=== PATIENT | male | born 1940 | race Caucasian/White ===

== ENCOUNTER 2019-04-22 08:00 | Outpatient (RCR) | payer MEDICARE, OTHER, SELFPAY ==
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
--- NOTE | 2019-04-22 09:24 | PTOPEVAL ---
PHYSICAL THERAPY DISCHARGE SUMMARY Thank you for referring Hang to [facility]. He was seen for eval and 4 treatment visits. He has met all goals set and has returned to his usual activity level without pain. He is ready for discharge from PT. I agree with and certify Hang's discharge from physical therapy. Referring Physician Date Admitting Provider: Attending Provider: Jason Cifuentes, Referring Provider: *PT Outpatient Evaluation Start: 04/08/19 10:31 Freq: Status: Active Protocol: Document 04/22/19 08:05 TAQUERIA (Rec: 04/22/19 09:24 TAQUERIA [id number]) Therapy Assessment Status Assessment Status Assessment Status Discharge Pain Assessment Timing of Pain Assessment Timing of Pain Assessment Re-assessment Self Report Self Report Pain Level 0 Pain Score Pain Score 0: Self Report Cervical and Lumbar ROM Lumbar ROM Lumbar ROM WNL Lumbar Comments equal SIJ mobility now present Cervical and Lumbar Muscle Testing Lumbar Strength Lumbar Functional Strength Comments Able to perform moderate levels of core stabilization exercises Muscle Length Testing Muscle Length Testing Left Hamstring Length -23 Query Text:(90 - 90 Position) Right Hamstring Length -18 Query Text:(90 - 90 Position) Gastrocnemius Length (R) Mild Tightness,(L) Mild Tightness Palpation Assessment Palpation Palpation no tenderness in lumbar spine, sacrum, L buttock, L greater trochanter regions. Good sacral mobility present. Fair lumbar segmental mobility present. No increase in tissue tension L buttock musculature. Equal SIJ mobility with Squish testing. PT Clinical Summary Clinical Summary Protocol: PTEVCODE Clinical Summary Hang states that he is feeling good and ready to be discharged from PT. He is not having any L hip discomfort with any of his usual activities - self, within the home, outside the home, and in the community. He has met all of the goals set except for hamstring and gastroc flexibility. He is encouraged to continue with his HEP and
== END 2019-07-05 13:51 | disposition home or self-care (01) ==
LOC: ANHHIPT 08:00
PROVIDERS: PCP Internal Medicine; Visit Provider Internal Medicine
DX: M54.5 Low back pain (principal); M25.552 Pain in left hip
CPT/HCPCS: 97014; 97110; 97140; 97161; G0283

== ENCOUNTER 2020-01-22 09:00 | Outpatient (RCR) | payer MEDICARE, OTHER, SELFPAY ==
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
--- NOTE | 2020-01-27 09:23 | PCPTNOTE ---
Monty phoned 01/24/20 to cancel the rest of his appointments - felt that he was doing well that he didn't need any further PT. Will d/c from PT.
--- NOTE | 2020-01-27 09:24 | PCPTNOTE ---
PHYSICAL THERAPY DISCHARGE NOTE Admitting Provider: Attending Provider: Jason Cifuentes, Patient:Hang Maza Date of :1940 Monty phone 01/24/2020 cancelling the rest of his PT appointments stating that he didn't need PT any longer. Monty?s initial visit was on 01/10/2020 08:30 and he had a total of 5 visits. The goals have been partially met. His initial c/o with L buttock and hip pain was resolved but then he began to have more central lower back pain c/o's. This was also addressed in PT. When last seen on 01/22/20, he did have c/o's lower back soreness. He does perform exercises at home, has a TENS unit, uses biofreeze as well as heat. He continues to stay active outdoors around his home. Thank you for referring Monty to [facility]. Please review, sign, date and return this discharge summary KARUNA. I have been updated about Monty's current status and I agree with discharge from the above service at this time. Referring Physician Date
== END 2020-02-11 09:32 | disposition home or self-care (01) ==
LOC: ANHHIPT 09:00
PROVIDERS: PCP Internal Medicine; Visit Provider Internal Medicine
DX: M54.5 Low back pain (principal); M25.552 Pain in left hip
CPT/HCPCS: 97110; 97140; 97161

== ENCOUNTER 2021-05-07 14:24 | Outpatient (CLI) | payer MEDICARE, OTHER, SELFPAY ==
--- NOTE | ~2021-05-07 | US_ITS ---
EXAMINATION: US carotid duplex BI DATE: 05/07/2021 15:01 INDICATION: Coronary artery disease TECHNIQUE: Grayscale, color Doppler, and pulsed Doppler images of the cervical carotid arteries were obtained. The degree of vessel stenosis is placed in one of the following categories: normal, <50%, 5 0-69%, >=70% but less than near-occlusion, near-occlusion, or total occlusion. Note that percent sten osis relative to normal distal artery lumen diameter is indirectly measured from velocity measurement s as described by Scott, et al. Radiology 2003; 229:340-346. Notes: Normal: Peak systolic velocity <125 centimeters/sec and no plaque <50%. Peak systolic velocity <125 ( EDV <40; ICA/CCA PSV ratio <2.0; used these factors only a tandem lesions or low cardiac output or co ntralateral disease) 50-69 %: PSV 125-230 (EDV 40-100; ratio 2-4) >= 70% but less than near occlusion: PSV greater than 230 (EDV > 100; ratio> 4.0) Near Occlusion: PSV that is variable; markedly narrowed lumen Occlusion: Absent flow on color/spectral Doppler and no lumen on pinon scale. COMPARISON: None. FINDINGS: RIGHT: The right common carotid artery (CCA) peak systolic velocity (PSV) is 90 cm/s. The right internal car otid artery (ICA) PSV is 77 cm/s. The right ICA end-diastolic velocity (EDV) is 13 cm/s. The right IC A/CCA PSV ratio is 0.9. The external carotid artery (ECA) PSV is 94 cm/s. There is antegrade flow in the right vertebral artery. LEFT: The left CCA PSV is 89 cm/s. The left ICA PSV is 89 cm/s. The left ICA EDV is 27 cm/s. The left ICA/C CA PSV ratio is 1.0. The ECA PSV is 78 cm/s. There is antegrade flow in the left vertebral artery. IMPRESSION: 1. Less than 50% stenosis in the right internal carotid artery by sonographic criteria. 2. Less than 50% stenosis in the left internal carotid artery by sonographic criteria. Reviewed, dictated and finalized at location A. RR OPERATOR IMPRESSION: 1. Less than 50% stenosis in the right internal carotid artery by sonographic hannah nazario. 2. Less than 50% stenosis in the left internal carotid artery by sonographic lindsey gallegos.
== END 2021-05-07 14:25 | disposition home or self-care (01) ==
LOC: ANHIMG 14:29
PROVIDERS: PCP Internal Medicine; Visit Provider Internal Medicine
DX: I65.23 Occlusion and stenosis of bilateral carotid arteries (principal)
CPT/HCPCS: 93880